=== PATIENT | female | born 1965 | race Caucasian/White ===

== ENCOUNTER 2021-03-02 16:34 | Emergency (ER) | payer OTHER ==
[~2021-03-02] VITALS: Ht 160 cm; Wt 47.6 kg
[2021-03-02] MEDS ORDERED: IBU800 MG PO (19:06)
== END 2021-03-02 19:40 | disposition home or self-care (01) ==
LOC: ER 16:34
DX: S93.491S Sprain of other ligament of right ankle, sequela (principal); W10.8XXS Fall (on) (from) other stairs and steps, sequela; S79.811 Other specified injuries of right hip; M54.5 Low back pain